=== PATIENT | male | born 1940 | race Hispanic/Latino ===

== ENCOUNTER 2017-04-03 11:24 | Outpatient (CLI) | payer MEDICARE, OTHER ==
[2017-04-03 12:47] LABS: #Basophils 0.1 thou/uL (0.0-0.2); #Eosinphils 0.1 thou/uL (0.0-0.7); #Lymphocytes 2.4 thou/uL (1.20-3.40); #Monocytes 0.7 thou/uL (0.11-0.59); #Neutrophils 3.7 thou/uL (1.40-6.50); %Basophils 1.3 % (0.0-1.0); %Lymphocytes 34.5 % (21.0-51.0); %Monocytes 9.8 % (0.0-10.0); %Neutrophils 52.4 % (42.0-75.0); Hemoglobin 13.6 g/dL (14.0-18.0); Mean Corpuscular HGB CONC 33.6 g/dL (32.0-36.0); Mean Corpuscular Hemoglobin 32.9 pg (27.0-31.0); Mean Platelet Volume 6.6 fL (7.4-10.4); Platelet Count 174 thou/uL (130-400); RBC Distribution Width 12.3 % (11.5-14.5); Red Blood Cell (RBC) Count 4.13 mill/uL (4.70-6.10); White Blood Cell (WBC) Count 7.1 thou/uL (4.8-10.8)
[2017-04-03 13:00] LABS: ALT (SGPT) 8 U/L (8-55); AST (SGOT) 16 U/L (5-34); Albumin 4.1 g/dL (3.4-4.8); Alkaline Phosphatase 81 U/L (40-150); Anion Gap 18 mmol/L (10-20); BUN (Urea Nitrogen) 27 mg/dL (8.4-25.7); Bilirubin, Direct 0.2 mg/dL (0.1-0.3); Bilirubin, Total 0.6 mg/dL (0.2-1.2); Calc. Creatinine Clearance 0 mL/min (70-130); Calcium 9.6 mg/dL (7.8-10.44); Carbon Dioxide 18 mmol/L (23-31); Cardiac Risk 2.9 (Less than 4.5); Chloride 107 mmol/L (98-107); Cholesterol 194 mg/dl (< 200 Desired); Estimated GFR-MDRD 22; Glucose 79 mg/dL (83-110); HDL Cholesterol 68 mg/dL (>60 Neg Risk); LDL Cholesterol, Calculated 105 mg/dL; Potassium 4.5 mmol/L (3.5-5.1); Protein, Total 6.8 g/dL (5.8-8.1); Sodium 138 mmol/L (136-145); Triglycerides 103 mg/dL (Less than 150)
[2017-04-03 13:02] LABS: PSA-Asymptomatic (SCREENING) 2.29 ng/mL (0-4.0)
[2017-04-03 13:20] LABS: Hemoglobin A1c 5.3 % (4.0-6.0)
== END 2017-04-03 11:25 | disposition home or self-care (01) ==
LOC: NAVSJIPCSP 11:24
PROVIDERS: ATTEND Family Medicine
DX: Z12.5 Encounter for screening for malignant neoplasm of prostate (principal); E11.65 Type 2 diabetes mellitus with hyperglycemia; I10 Essential (primary) hypertension; E78.5 Hyperlipidemia, unspecified; Z79.899 Other long term (current) drug therapy
CPT/HCPCS: 36415; 80048; 80061; 80076; 83036; 84443; 85025; G0103

== ENCOUNTER 2017-10-01 09:30 | Outpatient (CLI) | payer MEDICARE ==
--- NOTE | 2017-10-01 13:23 | ULT ---
RENAL SONOGRAM: Date: 10-01-17 History: Cystic kidney disease. FINDINGS: Right kidney demonstrates a normal sonographic appearance without evidence of a renal mass, renal ca lculus, or hydronephrosis. The right kidney measures 9.7 cm x 4.4 cm. The left kidney measures 9.3 cm x 4.4 cm. There is a very tiny anechoic exophytic structure seen wit hin the superior pole of the left kidney measuring 0.5 cm, likely related to a tiny cyst. Left kidne y is otherwise normal in appearance and there is no hydronephrosis or renal calculus appreciated. Urinary bladder demonstrates a normal sonographic appearance. Urinary bladder volume of 220 ml was o btained. IMPRESSION: 1. Tiny left renal cyst. The kidneys otherwise demonstrate a normal sonographic appearance bilateral ly, and there is no hydronephrosis. POS: [facility]
== END 2017-10-01 09:31 | disposition home or self-care (01) ==
LOC: NAV ULT 09:30
PROVIDERS: ATTEND Internal Medicine Nephrology
DX: N18.9 Chronic kidney disease, unspecified (principal); N28.1 Cyst of kidney, acquired
CPT/HCPCS: 76770